=== PATIENT | male | born 1940 | race Caucasian/White ===

== ENCOUNTER 2020-08-14 15:25 | Emergency (ER) | payer MEDICARE, MEDICAID, SELFPAY ==
[2020-08-14 15:33] VITALS: BP 96/58; PULSE 111; RESP 28; TEMP 36.9; O2SAT 91; BMI 21.2
[2020-08-14 15:48] VITALS: BP 96/58; PULSE 109; RESP 26; O2SAT 93
[2020-08-14 15:53] VITALS: O2SAT 94
--- NOTE | 2020-08-14 16:11 | PC.NURSE ---
Pt extremely anxious. Constantly request for door to stay open and not to shut the curtains. Tried to encourage and calm pt. Dr Armenta aware of pt anxiety
[2020-08-14 17:22] LABS: Basophils % 0.1 %; Hematocrit 37.9 % (42.0-52.0); Hemoglobin 12.8 g/dL (11.7-16.6); Lymphocytes # 0.8 10^3/uL (0.8-4.8); Mean Corpuscular HGB Conc 33.8 g/dL (30.0-36.0); Mean Corpuscular Hemoglobin 32.3 pg (28.0-34.0); Mean Corpuscular Volume 95.7 fL (80-94); Mean Platelet Volume 11.4 fL (7.4-10.4); Monocytes % 7.6 %; Neutrophils # 11.75 10^3/uL (1.8-7.7); Neutrophils % 85.4 %; Nucleated Red Blood Cells % 0 %; Platelet Count 194 10^3/cmm (130-400); Red Blood Count 3.96 10^6/uL (4.1-5.3); Red Cell Distribution Width 12.5 % (12.1-15.1); White Blood Count 13.8 10^3/uL (4.0-10.0)
[2020-08-14 17:28] LABS: INR 1.16 (0.8-1.2)
[2020-08-14 17:32] LABS: Lactate (Lactic Acid level) 1.5 mmol/L (0.5-2.2)
[2020-08-14 17:33] LABS: Alanine Aminotransferase 25 U/L (0-41); Albumin Level 2.9 g/dL (3.5-5.2); Alkaline Phosphatase 95 IU/L (40-130); Anion Gap 15.2 (5-19); Aspartate Amino Transferase 27 U/L (0-40); Blood Urea Nitrogen 61 mg/dL (8-23); C Reactive Protein 56.6 mg/L (0.0-4.9); Calcium 9.1 mg/dL (8.5-10.5); Carbon Dioxide 25 mmol/L (22-29); Chloride 96 mmol/L (98-107); Globulin 3.9 g/dL (1.3-4.6); Glucose 112 mg/dL (65-115); Osmolality Calculated 290 mOsm/kg (285-295); Potassium 5.2 mmol/L (3.5-5.1); Sodium 131 mmol/L (136-145); Total Bilirubin 0.6 mg/dL (0.15-1.2); Total Protein 6.8 g/dL (6.6-8.7)
--- NOTE | 2020-08-14 18:11 | CTR_ITS ---
PROCEDURE INFORMATION: Exam: CT Abdomen And Pelvis Without Contrast Exam date and time: 08/14/2020 6:17 PM Age: 80 years old Clinical indication: Other: Stomal bleeding; Prior surgery; Surgery type: Peg tube TECHNIQUE: Imaging protocol: Computed tomography of the abdomen and pelvis without contrast. Radiation optimization: All CT scans at this facility use at least one of these dose optimization techniques: automated exposure control; mA and/or kV adjustment per patient size (includes targeted exams where dose is matched to clinical indication); or iterative reconstruction. COMPARISON: CT abdomen pelvis w con* [id number] 06/08/2018 1:30 PM RADIATION DOSE METRICS: Total DLP (mGy-cm): 623.12 FINDINGS: Tubes, catheters and devices: Gastric PEG tube in place without visible evidence of complication. Lungs: Bibasilar mixed ground-glass and small volume subsegmental consolidated alveolar airspace disease which could reflect active pneumonitis/pneumonia with compressive atelectasis. Senile fibrosis. COPD/chronic bronchitis. Bilateral scant pleural effusions. Heart: Mild cardiomegaly. Liver: Unremarkable. No mass. Gallbladder and bile ducts: Unremarkable. No calcified stones. No ductal dilation. Pancreas: The pancreatic cyst within the distal body identified on 06/08/2018 is not well visualized this examination. No ductal dilation. Spleen: Rare calcified granuloma of antecedent disease of the spleen. Spleen otherwise unremarkable. Adrenal glands: Normal. No mass. Kidneys and ureters: Stable simple cortical cyst equator right kidney maximum diameter 41 mm. Stable small cortical cyst superior pole left kidney maximum diameter 22 mm. No follow-up recommended. No follow-up recommended. No hydronephrosis or perinephric fluid bilaterally. No visible nephrolithiasis. Stomach and bowel: Fecal impaction with heavy fecal residue consistent with constipation. Nonobstructive bowel pattern. No visible significant adynamic or reactive ileus. Small duodenal diverticulum. Mild diverticulosis coli without visible evidence of acute diverticulitis. Appendix: No evidence of appendicitis. Intraperitoneal space: Unremarkable. No free air. No significant fluid collection. Vasculature: The abdominal aorta is nonaneurysmal. Moderately advanced arterial sclerotic disease. Lymph nodes: Unremarkable. No enlarged lymph nodes. Urinary bladder: Vergara catheter within the decompressed urinary bladder. Reproductive: Unremarkable as visualized. Bones/joints: Pectus excavatum. No visible active or acute osseous pathology. Soft tissues: Unremarkable. Other findings: Evidence of antecedent granulomatous disease. Motion artifact. Cachexia. CT/CT abdomen pelvis wo con [id number] IMPRESSION: 1. Bibasilar mixed ground-glass and small volume subsegmental consolidated alveolar airspace disease which could reflect active pneumonitis/pneumonia with compressive atelectasis. 2. Gastric PEG tube in place without visible evidence of complication. 3. Fecal impaction with constipation. 4. Vergara catheter within a decompressed urinary bladder. 5. Other nonurgent, nonemergent, chronic, and age related findings as detailed in text above. Radiation Dose CTDIVOL = (mGy): DLP = 623.12 (mGy-cm)
[2020-08-14 18:17] VITALS: BP 110/63; PULSE 99; RESP 18; O2SAT 95
[2020-08-14 19:02] LABS: Add Urine Microscopic? YES; Bilirubin Urine Neg (Negative); Blood Urine Neg (Negative); Glucose Urine UA Norm (Normal); Ketones Urine Negative (Negative); Leukocyte Esterase Urine 2+ (Negative); Nitrate Urine Positive (Negative); Protein Urine Neg (Negative); Urine Appearance Hazy (CLEAR); Urine Color Yellow (Yellow); Urobilinogen Urine Neg (Negative); pH Urine 6.5 (5-7)
[2020-08-14 19:04] LABS: Amorphous Sediment Urine 2+ /hpf; Bacteria Urine 3+ /hpf; Mucus Urine 1+ /hpf; Squamous Epithelial Cell Urine 0-4 /hpf (0-5); WBC Urine 80-100 /hpf (0-5)
[2020-08-14 19:05] LABS: Add Urine Culture? Yes; Fine Granular Casts Urine 0-4 /lpf
[2020-08-14 21:28] VITALS: BP 120/59; PULSE 98; O2SAT 96
[2020-08-14 22:41] LABS: Hematocrit 37.3 % (42.0-52.0); Hemoglobin 12.5 g/dL (11.7-16.6)
--- NOTE | 2020-08-14 22:46 | W.ED.COVID ---
HPI - COVID General: Chief Complaint: COVID symptoms Stated Complaint: COVID POSITIVE Time Seen by Provider: 08/14/20 16:01 Source: family and EMS Mode of arrival: EMS Limitations: altered mental status Triage information: No fever, cough or shortness of breath. No known COVID + exposure last 14 days History of Present Illness: HPI Narrative: The patient is an 80-year-old [facility] resident with a history of bladder cancer and he is on hospice in the [facility]. He was diagnosed with COVID-19 about 16 days ago and has completed a 10-day course of oral dexamethasone. He has been on oxygen at 5 L at the [facility]. Today they noticed some bleeding around the stoma of his PEG tube and he had complained of abdominal pain so he was sent to the emergency department for evaluation. The patient denies any nausea or vomiting, denies a fever. He also denies difficulty breathing. MD complaint: known COVID positive COVID 19 common symptoms: negative fever(s), chills, non-productive cough, productive cough, dyspnea, body aches, headache(s), throat pain, nausea or vomiting COVID Results: No Data to Display Review of Systems General: Reports: 10 or more systems reviewed and unremarkable except in HPI and below Const: Denies: fever(s), chills or body aches Eyes: Denies: change in vision or blurry vision ENMT: Denies: throat pain, enlarged tonsils, odynophagia, hoarseness, mouth pain or swelling of lips/tongue Card: Denies: palpitations, irregular heart rhythm, edema or swelling of feet/ankles Resp: Denies: dyspnea, productive cough or non-productive cough GI: Reports: abdominal pain; Denies: nausea or vomiting : Denies: flank pain, dysuria, urinary frequency, urinary urgency or urinary hesitancy Musc: Denies: neck pain, back pain or extremity swelling Skin/Breast: Denies: rash, pruritus or erythema Neuro: Denies: headache(s), numbness in extremities or weakness in extremities Endo: Denies: polyuria, polydipsia or tired all the time Physical Exam Const: COMMON NORMALS: no acute distress and average body habitus EXAM LIMITATIONS: altered mental status (he appears mildly confused.) ORIENTATION/CONSCIOUSNESS: Yes oriented to person and Yes oriented to place HENMT: COMMON NORMALS: normocephalic and atraumatic HEAD & SCALP: normocephalic and atraumatic Neck/C-Spine: COMMON NORMALS: full ROM, supple and no meningeal signs Resp: COMMON NORMALS: normal respiratory effort, No retractions and No use of accessory muscles EFFORT & INSPECTION: Yes able to speak in complete sentences AUSCULTATION: rales and diminished lung sounds Cardio: COMMON NORMALS: regular rhythm, S1 normal heart sound present and S2 normal heart sound present RHYTHM: regular rhythm HEART SOUNDS: S1 normal heart sound present and S2 normal heart sound present GI: COMMON NORMALS: Soft to palpation and non-tender INSPECTION: Yes other (PEG tube site with mild erythema around it, the gauze that has been placed.) AUSCULTATION: Yes normoactive bowel sounds PALPATION: Yes Soft to palpation and No Tenderness to palpation present (GI) OTHER: urostomy site intact Extremity: COMMON NORMALS: normal to inspection and no pedal edema Neuro: SENSORIUM/ORIENTATION: Yes oriented to person and Yes oriented to place MENINGEAL SIGNS: Yes no meningeal signs Course Reevaluation(s): Reevaluation #1: Discussed his lab and imaging findings with him. No acute findings. A referral has been put in for him to obtain an outpatient colonoscopy. We will discharge him back to the [facility]. Time: 22:47 Reevaluation #2: Discussed with his daughter about his lab and imaging findings including pneumonia which is likely from COVID-19. He also has a UTI. I discussed treatment options with her including inpatient care versus returning to the [facility]. She said that he does not like being in the hospital and what she wants for him is for him to be comfortable. She understands that with the Covid there is limited treatment options because of this she would like him to be sent back to the [facility] and to be comfortable. She agrees to try some antibiotics to see if this improves but she understands that he may continue to deteriorate. I explained to her that his oxygen needs have increased. Since she knows that he does not like hospitals and that with the Covid treatment options are limited, she wants us to discharge him back to the [facility] and for him to be made comfortable. Time: 23:20 Vital Signs: Vital signs: Vital Signs Temperature 98.5 F 08/14/20 15:33 Pulse Rate 86 08/15/20 00:39 Respiratory Rate 18 08/14/20 18:17 Blood Pressure 116/72 08/15/20 00:39 Pulse Oximetry 96 08/15/20 00:39 MDM - COVID MDM Narrative: Medical decision making narrative: 80-year-old gentleman with bladder cancer and he is on hospice care at the [facility] presents with bleeding from his PEG tube site. Hemoglobin remained stable when checked twice 6 hours apart in the emergency department. Evaluation in the emergency department however shows that he has pneumonitis, likely secondary to COVID-19. He also has a urinary tract infection. The patient was confused and unable to make medical decisions so I discussed with his next of kin who is his daughter, Neha Tenorio and after discussion she wanted him discharged back to the [facility] on oral antibiotics and to see if he improves. Since he is hospice, she would like for him to be comfortable. Medical Records: Attestation: I reviewed the patient's medical records. Lab Data: Attestation: I reviewed the patient's lab results. Labs: Lab Results 08/14/20 08/14/20 08/14/20 Range/Units 16:03 16:03 16:03 WBC 13.8 H (4.0-10.0) 10^3/ uL RBC 3.96 L (4.1-5.3) 10^6/u L Hgb 12.8 (11.7-16.6) g/dL Hct 37.9 L (42.0-52.0) % MCV 95.7 H (80-94) fL MCH 32.3 (28.0-34.0) pg MCHC 33.8 (30.0-36.0) g/dL RDW 12.5 (12.1-15.1) % Plt Count 194 (130-400) 10^3/c mm MPV 11.4 H (7.4-10.4) fL Neut % (Auto) 85.4 % Lymph % (Auto) 6.0 % Sullivan % (Auto) 7.6 % Eos % (Auto) 0.0 % Baso % (Auto) 0.1 % Neut # (Auto) 11.75 H (1.8-7.7) 10^3/u L Lymph # (Auto) 0.8 (0.8-4.8) 10^3/u L Sullivan # (Auto) 1.0 H (0.2-0.9) 10^3/u L Eos # (Auto) 0.0 (0.0-0.8) 10^3/u L Baso # (Auto) 0.0 (0.0-0.1) 10^3/u L Nucleated RBC % (a uto) 0 % Nucleated RBCs # 0.0 /100WBC PT 15.10 H (12.1-14.9) SECO NDS INR 1.16 (0.8-1.2) Sodium 131 L (136-145) mmol/L Potassium 5.2 H (3.5-5.1) mmol/L Chloride 96 L (98-107) mmol/L Carbon Dioxide 25 (22-29) mmol/L Anion Gap 15.2 (5-19) BUN 61 H (8-23) mg/dL Creatinine 2.1 H (0.7-1.2) mg/dL GFR Calculation Not Reportable Glucose 112 (65-115) mg/dL Calculated Osmolal ity 290 (285-295) mOsm/k g Lactate (0.5-2.2) mmol/L Calcium 9.1 (8.5-10.5) mg/dL Total Bilirubin 0.6 (0.15-1.2) mg/dL AST 27 (0-40) U/L ALT 25 (0-41) U/L Alkaline Phosphata se 95 (40-130) IU/L C-Reactive Protein 56.6 H (0.0-4.9) mg/L Total Protein 6.8 (6.6-8.7) g/dL Albumin 2.9 L (3.5-5.2) g/dL Globulin 3.9 (1.3-4.6) g/dL Urine Color (Yellow) Urine Appearance (CLEAR) Urine pH (5-7) Ur Specific Gravit y (1.005-1.030) Urine Protein (Negative) Urine Glucose (UA) (Normal) Urine Ketones (Negative) Urine Blood (Negative) Urine Nitrate (Negative) Urine Bilirubin (Negative) Urine Urobilinogen (Negative) mg/dL Ur Leukocyte Avani ase (Negative) Urine RBC (0-2) /hpf Urine WBC (0-5) /hpf Ur Squamous Epith Cells (0-5) /hpf Amorphous Sediment /hpf Urine Bacteria (NONE) /hpf Fine Granular Cast s /lpf Urine Mucus /hpf Blood Type Rho(D) Type Antibody Screen 08/14/20 08/14/20 08/14/20 Range/Units 16:03 18:15 18:32 WBC (4.0-10.0) 10^3/ uL RBC (4.1-5.3) 10^6/u L Hgb (11.7-16.6) g/dL Hct (42.0-52.0) % MCV (80-94) fL MCH (28.0-34.0) pg MCHC (30.0-36.0) g/dL RDW (12.1-15.1) % Plt Count (130-400) 10^3/c mm MPV (7.4-10.4) fL Neut % (Auto) % Lymph % (Auto) % Sullivan % (Auto) % Eos % (Auto) % Baso % (Auto) % Neut # (Auto) (1.8-7.7) 10^3/u L Lymph # (Auto) (0.8-4.8) 10^3/u L Sullivan # (Auto) (0.2-0.9) 10^3/u L Eos # (Auto) (0.0-0.8) 10^3/u L Baso # (Auto) (0.0-0.1) 10^3/u L Nucleated RBC % (a uto) % Nucleated RBCs # /100WBC PT (12.1-14.9) SECO NDS INR (0.8-1.2) Sodium (136-145) mmol/L Potassium (3.5-5.1) mmol/L Chloride (98-107) mmol/L Carbon Dioxide (22-29) mmol/L Anion Gap (5-19) BUN (8-23) mg/dL Creatinine (0.7-1.2) mg/dL GFR Calculation Glucose (65-115) mg/dL Calculated Osmolal ity (285-295) mOsm/k g Lactate 1.5 (0.5-2.2) mmol/L Calcium (8.5-10.5) mg/dL Total Bilirubin (0.15-1.2) mg/dL AST (0-40) U/L ALT (0-41) U/L Alkaline Phosphata se (40-130) IU/L C-Reactive Protein (0.0-4.9) mg/L Total Protein (6.6-8.7) g/dL Albumin (3.5-5.2) g/dL Globulin (1.3-4.6) g/dL Urine Color Yellow (Yellow) Urine Appearance Hazy A (CLEAR) Urine pH 6.5 (5-7) Ur Specific Gravit y 1.010 (1.005-1.030) Urine Protein Neg (Negative) Urine Glucose (UA) Norm (Normal) Urine Ketones Negative (Negative) Urine Blood Neg (Negative) Urine Nitrate Positive H (Negative) Urine Bilirubin Neg (Negative) Urine Urobilinogen Neg (Negative) mg/dL Ur Leukocyte Avani ase 2+ H (Negative) Urine RBC 5-10 H (0-2) /hpf Urine WBC 80-100 H (0-5) /hpf Ur Squamous Epith Cells 0-4 H (0-5) /hpf Amorphous Sediment 2+ /hpf Urine Bacteria 3+ H (NONE) /hpf Fine Granular Cast s 0-4 H /lpf Urine Mucus 1+ /hpf Blood Type A Positive Rho(D) Type Positive Antibody Screen Negative 08/14/20 Range/Units 22:36 WBC (4.0-10.0) 10^3/ uL RBC (4.1-5.3) 10^6/u L Hgb 12.5 (11.7-16.6) g/dL Hct 37.3 L (42.0-52.0) % MCV (80-94) fL MCH (28.0-34.0) pg MCHC (30.0-36.0) g/dL RDW (12.1-15.1) % Plt Count (130-400) 10^3/c mm MPV (7.4-10.4) fL Neut % (Auto) % Lymph % (Auto) % Sullivan % (Auto) % Eos % (Auto) % Baso % (Auto) % Neut # (Auto) (1.8-7.7) 10^3/u L Lymph # (Auto) (0.8-4.8) 10^3/u L Sullivan # (Auto) (0.2-0.9) 10^3/u L Eos # (Auto) (0.0-0.8) 10^3/u L Baso # (Auto) (0.0-0.1) 10^3/u L Nucleated RBC % (a uto) % Nucleated RBCs # /100WBC PT (12.1-14.9) SECO NDS INR (0.8-1.2) Sodium (136-145) mmol/L Potassium (3.5-5.1) mmol/L Chloride (98-107) mmol/L Carbon Dioxide (22-29) mmol/L Anion Gap (5-19) BUN (8-23) mg/dL Creatinine (0.7-1.2) mg/dL GFR Calculation Glucose (65-115) mg/dL Calculated Osmolal ity (285-295) mOsm/k g Lactate (0.5-2.2) mmol/L Calcium (8.5-10.5) mg/dL Total Bilirubin (0.15-1.2) mg/dL AST (0-40) U/L ALT (0-41) U/L Alkaline Phosphata se (40-130) IU/L C-Reactive Protein (0.0-4.9) mg/L Total Protein (6.6-8.7) g/dL Albumin (3.5-5.2) g/dL Globulin (1.3-4.6) g/dL Urine Color (Yellow) Urine Appearance (CLEAR) Urine pH (5-7) Ur Specific Gravit y (1.005-1.030) Urine Protein (Negative) Urine Glucose (UA) (Normal) Urine Ketones (Negative) Urine Blood (Negative) Urine Nitrate (Negative) Urine Bilirubin (Negative) Urine Urobilinogen (Negative) mg/dL Ur Leukocyte Avani ase (Negative) Urine RBC (0-2) /hpf Urine WBC (0-5) /hpf Ur Squamous Epith Cells (0-5) /hpf Amorphous Sediment /hpf Urine Bacteria (NONE) /hpf Fine Granular Cast s /lpf Urine Mucus /hpf Blood Type Rho(D) Type Antibody Screen Imaging Data: CT Abd/Pel: Radiologist's impression: [address] [id number] [address] Scan Report Signed Patient: Liz Pack #: [id number] : 1940Acct#:[id number] Age/Sex: 80 / MADM Date: 08/14/20 Loc: ERRoom/Bed: Attending Dr: Ordering Provider/Ordering MD: Ksenia Caballero MD, LANRE Date of Service: 08/14/20 Procedure(s): CT abdomen pelvis wo con [id number] Accession Number(s): [id number] Report Number: [id number] PROCEDURE INFORMATION: Exam: CT Abdomen And Pelvis Without Contrast Exam date and time: 08/14/2020 6:17 PM Age: 80 years old Clinical indication: Other: Stomal bleeding; Prior surgery; Surgery type: Peg tube TECHNIQUE: Imaging protocol: Computed tomography of the abdomen and pelvis without contrast. Radiation optimization: All CT scans at this facility use at least one of these dose optimization techniques: automated exposure control; mA and/or kV adjustment per patient size (includes targeted exams where dose is matched to clinical indication); or iterative reconstruction. COMPARISON: CT abdomen pelvis w con* [id number] 06/08/2018 1:30 PM RADIATION DOSE METRICS: Total DLP (mGy-cm): 623.12 FINDINGS: Tubes, catheters and devices: Gastric PEG tube in place without visible evidence of complication. Lungs: Bibasilar mixed ground-glass and small volume subsegmental consolidated alveolar airspace disease which could reflect active pneumonitis/pneumonia with compressive atelectasis. Senile fibrosis. COPD/chronic bronchitis. Bilateral scant pleural effusions. Heart: Mild cardiomegaly. Liver: Unremarkable. No mass. Gallbladder and bile ducts: Unremarkable. No calcified stones. No ductal dilation. Pancreas: The pancreatic cyst within the distal body identified on 06/08/2018 is not well visualized this examination. No ductal dilation. Spleen: Rare calcified granuloma of antecedent disease of the spleen. Spleen otherwise unremarkable. Adrenal glands: Normal. No mass. Kidneys and ureters: Stable simple cortical cyst equator right kidney maximum diameter 41 mm. Stable small cortical cyst superior pole left kidney maximum diameter 22 mm. No follow-up recommended. No follow-up recommended. No hydronephrosis or perinephric fluid bilaterally. No visible nephrolithiasis. Stomach and bowel: Fecal impaction with heavy fecal residue consistent with constipation. Nonobstructive bowel pattern. No visible significant adynamic or reactive ileus. Small duodenal diverticulum. Mild diverticulosis coli without visible evidence of acute diverticulitis. Appendix: No evidence of appendicitis. Intraperitoneal space: Unremarkable. No free air. No significant fluid collection. Vasculature: The abdominal aorta is nonaneurysmal. Moderately advanced arterial sclerotic disease. Lymph nodes: Unremarkable. No enlarged lymph nodes. Urinary bladder: Vergara catheter within the decompressed urinary bladder. Reproductive: Unremarkable as visualized. Bones/joints: Pectus excavatum. No visible active or acute osseous pathology. Soft tissues: Unremarkable. Other findings: Evidence of antecedent granulomatous disease. Motion artifact. Cachexia. CT/CT abdomen pelvis wo con [id number] IMPRESSION: 1. Bibasilar mixed ground-glass and small volume subsegmental consolidated alveolar airspace disease which could reflect active pneumonitis/pneumonia with compressive atelectasis. 2. Gastric PEG tube in place without visible evidence of complication. 3. Fecal impaction with constipation. 4. Vergara catheter within a decompressed urinary bladder. 5. Other nonurgent, nonemergent, chronic, and age related findings as detailed in text above. Radiation Dose CTDIVOL = (mGy): DLP = 623.12 (mGy-cm) Dictated By:Phil Alvarez Signed By:Phil AlvarezSignbisi Date/Time:08/14/201900 DD/ 00 COVID Results: No Data to Display Discharge Plan Discharge Patient Disposition: [facility] Fac Not [facility] w Plan Readm Clinical Impression: Hemorrhage from enterostomy stoma, Pneumonia due to 2019 novel coronavirus, Acute UTI, Hospice care patient, Acute hyperkalemia Condition: Stable Prescriptions: New Augmentin 875-125 mg tablet 1 tab PO BID Qty: 20 RF: 0 linezolid 600 mg tablet 600 mg PO BID 10 Days Qty: 20 RF: 0 Continued docusate sodium 50 mg/5 mL Liquid 5 ml feeding tube BID RF: 0 levetiracetam 100 mg/mL solution See Rx Instructions .ROUTE .COMPLEX RF: 0 silver sulfadiazine 1 % Cream 1 applic TOPICAL DAILY RF: 0 Miralax 17 gram Powder In Packet 17 g feeding tube DAILY PRN (Reason: Constipation) RF: 0 ondansetron HCl [Zofran] 4 mg Tablet 4 mg feeding tube Q6H PRN (Reason: Nausea) RF: 0 sennosides-docusate sodium [Senna-S] 8.6-50 mg Tablet See Rx Instructions .ROUTE .COMPLEX RF: 0 Ativan 0.5 mg Tablet 0.5 mg feeding tube .EVERY 6 TO 8 HOURS PRN (Reason: Anxiety) RF: 0 Milk of Magnesia 400 mg/5 mL Suspension 30 ml PO DAILY PRN (Reason: Constipation) RF: 0 bisacodyl 10 mg Suppository 10 mg NH DAILY PRN (Reason: Constipation) RF: 0 nicotine 21 mg/24 hr Patch 24 Hour 1 patch TRANSDERMAL DAILY RF: 0 Enema Disposable 19-7 gram/118 mL Enema 118 ml NH DAILY PRN (Reason: Constipation) RF: 0 acetaminophen 650 mg/20.3 mL Solution 650 mg feeding tube Q6H PRN (Reason: Pain) RF: 0 levofloxacin 750 mg Tablet 750 mg PO DAILY RF: 0 Discharge Orders: Discharge Order (Routine); Ordered 08/14/20 Ordered By: Ksenia Caballero Discharge Diet: Usual diet Discharge Activity: Resume usual activity Patient Instructions: Viral Pneumonia (ED), Urinary Tract Infection in Men (ED), Hyperkalemia (ED) Activity Restrictions/Additional Instructions: Return for any new or worsening symptoms. Take antibiotics as prescribed. Continue your hospice medications as prescribed. Follow-up with your primary care provider within 3 days. Coding Level of Care Code ED Radio Equipment Installer for Chetan Espinoza
[2020-08-14] MEDS: LORazepam 2 mg/mL INJ 1 mL 1 MG IM (23:55)
[2020-08-14] MEDS: cefTRIAXone 1,000 mg SDV 1000 MG IM (23:56)
[2020-08-15 00:39] VITALS: BP 116/72; PULSE 86; O2SAT 96
[2020-08-15 02:44] VITALS: BP 123/65; PULSE 99; O2SAT 98
[2020-08-15 04:07] VITALS: BP 99/52; PULSE 96; O2SAT 98
--- NOTE | 2020-08-19 15:00 | DCPLANNER ---
mortuary operations manager had message to schedule a follow up appointment for patient with general surgery. mortuary operations manager sent an email to [facility] General Surgery referral coordinators, Sayda. mortuary operations manager gave clinic patients information. Patients information would be printed and reviewed. Clinic will call patient back with appointment information.
--- NOTE | 2020-08-27 10:39 | DCPLANNER ---
Luci from [facility] general surgery, contacted immigration case worker stating that per intermediate that patient has .
== END 2020-08-15 04:31 ==
PROVIDERS: Emergency Provider Family Medicine
DX: U07.1 COVID-19 (principal); J12.89 Other viral pneumonia; N00-N99 Diseases of the genitourinary system; N39.0 Urinary tract infection, site not specified; E87.5 Hyperkalemia
CPT/HCPCS: 12345; 74176; 80053; 81001; 83605; 85014; 85018; 85025; 85610; 86140; 86850; 86900; 87077; 87086; 87186; 96372; 99283; 99291; J0696; J2060